=== PATIENT | female | born 1960 | race Caucasian/White ===

== ENCOUNTER 2017-10-16 06:07 | Inpatient (IN) | payer OTHER ==
--- NOTE | 2017-09-26 09:56 | PAT Medication Instructions ---
Service Date Sep 26, 2017. 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 Instructions For Your Scheduled Surgery - Hold the following medications the morning of surgery: Lisinopril (Prinivil), 20 MG PO QAM Methocarbamol (Robaxin), 500 MG PO TID PRN for RN - Take the following medications the morning of surgery with a sip of water: Duloxetine Hcl (Cymbalta), 60 MG PO QAM Hydrocodone/Acetaminophen 10MG/325MG ([place] 10MG/325MG), 1 TAB PO Q4H PRN for Pain (if needed, can be taken up to four hours before surgery) Levothyroxine Sodium (Levothyroxine Sodium), 1 TAB PO QAM Lorazepam (Ativan), 0.5 MG PO PRN (if needed) - Take the following medications as scheduled the night before surgery: Hydrocodone/Acetaminophen 10MG/325MG ([place] 10MG/325MG), 1 TAB PO Q4H PRN for Pain (if needed) Lorazepam (Ativan), 0.5 MG PO PRN (if needed) Methocarbamol (Robaxin), 500 MG PO TID PRN for RN (if needed) If you have any questions please call us at [phone] or [phone] or [phone]
--- NOTE | 2017-09-26 10:54 | DIAGNOSTIC IMAGING REPORT ---
CHEST 2 VIEWS ROUTINE HISTORY: 57 years-old Female PAT preoperative exam. No acute chest complaints COMPARISON: None available TECHNIQUE: PA and lateral views of the chest FINDINGS: Cardiomediastinal and hilar silhouettes are within normal limits. There is no pneumothorax, pleural effusion, focal airspace consolidation or overt pulmonary edema. There are multiple linear subsegmental lingular and right basilar opacities are noted suggesting areas of atelectasis/scarring. The bones of the chest appear grossly intact. Multilevel degenerative changes of the spine. Dextroscoliosis of the lumbar spine. IMPRESSION: No acute process. The above report was generated using voice recognition software. It may contain grammatical, syntax or spelling errors. Electronically signed by: Jose Kelly M.D. 09/26/2017 10:53 AM Dictated Date/Time: 09/26/2017 10:52 AM
[2017-09-26 12:17] LABS: BASO % 0.3 %; BASO ABS # 0.03 K/uL (0-0.2); EOS % 1.2 %; EOS ABS # 0.12 K/uL (0-0.5); HEMATOCRIT 44.9 % (37-47); IG# 0.02 K/uL (0.00-0.02); LYMPH % 28.9 %; LYMPH ABS # 3.01 K/uL (1.2-3.4); MEAN CELL VOLUME 97.2 fL (80-100); MEAN CORPUSCULAR HEMOGLOBIN 32.5 pg (25-34); MEAN CORPUSCULAR HGB CONC 33.4 g/dl (32-36); MEAN PLATELET VOLUME 10.3 fL (7.4-10.4); MONO % 6.4 %; MONO ABS # 0.67 K/uL (0.11-0.59); NEUT ABS # 6.57 K/uL (1.4-6.5); PLATELET COUNT 274 K/uL (130-400); RED CELL DISTRIBUTION WIDTH CV 12.8 % (11.5-14.5); RED CELL DISTRIBUTION WIDTH SD 44.7 fL (36.4-46.3); WHITE BLOOD COUNT 10.42 K/uL (4.8-10.8)
[2017-10-16] VITALS (18 sets, daily range): BP systolic 115–168; BP diastolic 73–91; PULSE 74–94; TEMP 36.5–37; O2SAT 95–100; Ht 162.6 cm; Wt 80.1 kg
[~2017-10-16] VITALS: Ht 162.6 cm; Wt 80.1 kg
[~2017-10-16 06:07] MED LIST: CLINDAMYCIN 600 MG/54 ML D5W IV SCH; DULO60CA44 PO; HYDR-4079 PO; LACTATED RINGER'S 1000ML 1,000 ML IV SCH; LEVO75TA5 PO; LISI20TA3 PO; LORA-741 PO; METH500T37 PO
[2017-10-16] MEDS ORDERED: ONDANSETRON INJ 2 MG/ML 2 ML VIAL IV PRN ×2 (06:30→09:30)
[2017-10-16] MEDS ORDERED: ATROPINE SULFATE 0.1 MG/ML 5ML SYR IV PRN (06:30)
[2017-10-16] MEDS ORDERED: EpHEDrine SULFATE INJ 50 MG/ML AMP IV PRN (06:30)
[2017-10-16] MEDS ORDERED: MIDAZOLAM HCL 1 MG/ML 2ML VIAL ONE (06:52)
[2017-10-16] MEDS ORDERED: FENTANYL CITRATE INJ 50 MCG/1 ML 2 ML VIAL ONE ×3 (06:52→08:32)
[2017-10-16] MEDS ORDERED: SODIUM CHLORIDE 0.9% PF 50 ML VIAL ONE (06:59)
[2017-10-16] MEDS ORDERED: BACITRACIN 50000 UNIT VIAL ONE (06:59)
--- NOTE | 2017-10-16 08:00 | History & Physical Bridge Note ---
H&P Re-Evaluation Bridge Note: I have examined the patient, reviewed the History & Physical and in the interval since the performance of the History & Physical I have noted the following changes of clinical significance: No changes noted
--- NOTE | 2017-10-16 08:01 | History and Physical ---
History & Physical Date Oct 16, 2017. Chief Complaint Neck and arm pain History of Present Illness The patient is a 57 year old female with complaints of neck and arm pain Additional History Hepatic Disease: No Endocrine Disorder: No Kidney Disease: No Hypertension: Yes Heart Disease: No Bleeding Tendencies: No Infectious Diseases: No Allergies Coded Allergies: Penicillins (Verified Allergy, Unknown, THROAT TONGUE SWELLS HIVES, ) Home Medications Scheduled Duloxetine Hcl (Cymbalta), 60 MG PO QAM Levothyroxine Sodium (Levothyroxine Sodium), 1 TAB PO QAM Lisinopril (Prinivil), 20 MG PO QAM Scheduled PRN Hydrocodone/Acetaminophen 10MG/325MG ([place] 10MG/325MG), 1 TAB PO Q4H PRN for Pain Methocarbamol (Robaxin), 500 MG PO TID PRN for RN Physical Examination Skin: warm/dry, no rash Eyes: normal inspection, EOMI, sclerae normal ENT: normal ENT inspection, pharynx normal Head: normocephalic, atraumatic Neck: supple, no adenopathy, trachea midline Respiratory/Chest: lungs clear, normal breath sounds, no respiratory distress Cardiovascular: regular rate, rhythm, no edema, no murmur Abdomen / GI: normal bowel sounds, non tender Back: normal inspection Extremities: normal inspection, normal range of motion Neurologic/Psych: no motor/sensory deficits, alert, normal reflexes, oriented x 3 Diagnosis Cervical spinal stenosis Plan of Treatment ACDF C5-6
[2017-10-16] MEDS ORDERED: HYDROmorphone INJ 2 MG/ML SYR/VIAL ONE ×2 (08:32→09:19)
[2017-10-16] MEDS ORDERED: FLOSEAL HEMOSTATIC MATRIX 10ML TOP ONE (09:13)
[2017-10-16] MEDS ORDERED: ONDANSETRON INJ 2 MG/ML 2 ML VIAL ONE ×2 (09:18→09:24)
[2017-10-16] MEDS ORDERED: ROCURONIUM BROMIDE 10 MG/ML 5 ML VIAL IV ONE (09:18)
[2017-10-16] MEDS ORDERED: LIDOCAINE HCL 2% 2 ML VIAL (20MG/ML) ONE (09:18)
[2017-10-16] MEDS ORDERED: PROPOFOL IV EMULSION 10 MG/ML 20 ML VIAL IV ONE (09:18)
[2017-10-16] MEDS ORDERED: DEXAMETHASONE SOD INJ 4 MG/ML VIAL ONE (09:18)
--- NOTE | 2017-10-16 09:19 | [facility] Operative Report ---
Operative Report Operative Date Oct 16, 2017. Pre-Operative Diagnosis Cervical spinal stenosis Post-Operative Diagnosis Cervical spinal stenosis Procedure(s) Performed 1. Anterior cervical discectomy bilateral foraminotomies C5-6. #2 anterior cervical arthrodesis C5-6. #3 placement of cortical allograft filled with DBM 7 mm in height at C5-6. #4 application of felt complete and screws across C5-6. Surgeon Dr. Prabhu Stevenson Jigger Artisan Surgeon(s) Kaylee Perez PA-C Estimated Blood Loss 10ml Findings Spinal stenosis Specimens None per surgeon Anesthesia Type General Description of Procedure Patient was met with preoperatively case discussed all questions addressed. After informed consent obtained patient was taken to the operative suite underwent intubation and placed in a supine position on the [place]undio table with head [place] head of marketing analytics. All bony prominences well-padded eyes inspected to ensure no external pressure placed upon them. This point the anterior cervical spine was prepped and draped in normal sterile fashion. The assistance of fluoroscopy identified the C5-6 disc space and a transverse incision was placed along the right anterior aspect of the cervical spine overlying this region. Sharp dissection with the assistance of bipolar electrocautery was performed to expose the anterior cervical spine at C5-6. Self retaining retractors placed. I then performed a complete discectomy at C5-6 up to the uncovertebral joints bilaterally. [place] distracting pins were utilized to assist us in her visualization. Remove all of the disc posterior fibers and longitudinal ligament and performed bilateral foraminotomies for complete decompression. The endplates were then burred to subcortical bleeding bone and a 7 mm cortical allograft with DBM tapped in position. Distraction apparatus was removed and a 5 complete and screws applied with the assistance of fluoroscopy. Incision was then copiously irrigated explored to ensure there is no damage to surrounding structures remaining bleeding. A 10 round GARRETT drain inserted. Incision was then closed with 2 Vicryl fascia 4-0 Monocryl for fashion closure Steri-Strips sterile dressings placed. Patient will continue to PACU stable condition. Please note Kaylee Perez was present throughout the entire procedure involved in patient positioning complex portions of the surgery and final skin closure. I attest to the content of the Intraoperative Record and any orders documented therein. Any exceptions are noted below.
[2017-10-16] MEDS ORDERED: PHENYLEPHRINE 100MCG/ML 5ML SYR ONE (09:24)
[2017-10-16] MEDS ORDERED: GLYCOPYRROLATE INJ 0.2 MG/ML VIAL ONE (09:24)
[2017-10-16] MEDS ORDERED: EpHEDrine SULFATE 50MG/5ML SYR ONE (09:24)
[2017-10-16] MEDS ORDERED: NEOSTIGMINE METHYLSULFATE 1 MG/ML 10ML VIAL ONE (09:24)
[2017-10-16] MEDS ORDERED: NALOXONE HCL 0.4 MG/1 ML VIAL/CARP IV PRN (09:30)
[2017-10-16] MEDS ORDERED: METHOCARBAMOL 500 MG TAB PO PRN (09:30)
[2017-10-16] MEDS ORDERED: ACETAMINOPHEN IV 100 ML IV PRN (09:30)
[2017-10-16] MEDS ORDERED: DO NOT ADMINISTER PNEUMOCOCCAL VACCINE PRN (09:30)
[2017-10-16] MEDS ORDERED: LORAZEPAM INJ 0.5 MG in SYRINGE 0.75 ML IV PRN (09:30)
[2017-10-16] MEDS ORDERED: DEXAMETHASONE INJ 8 MG in SYRINGE 0 ML IV PRN (09:30)
[2017-10-16] MEDS ORDERED: RACEPINEPHRINE 2.25% NEBU SOLN 0.5 ML VIAL INH PRN (09:30)
[2017-10-16] MEDS ORDERED: LORAZEPAM 0.5 MG TAB PO PRN (09:30)
[2017-10-16] MEDS ORDERED: DiphenhydrAMINE HCL 50 MG/ML VIAL IV PRN (09:30)
[2017-10-16] MEDS ORDERED: DO NOT ADMINISTER FLU VACCINE PRN (09:30)
[2017-10-16] MEDS ORDERED: MAGNESIUM HYDROXIDE SUSP 30 ML UDC PO PRN (09:30)
--- NOTE | 2017-10-16 09:42 | DIAGNOSTIC IMAGING REPORT ---
CERVICAL 2 OR 3 VIEWS CLINICAL HISTORY: 57 years-old Female presenting with ACDF C5-6. TECHNIQUE: 2 fluoroscopic spot image(s) obtained as part of an intraoperative procedure. COMPARISON: None. FINDINGS/IMPRESSION: Anterior cervical discectomy and fusion of C5-6 with interbody spacer. Straightening of normal cervical lordosis likely due to degenerative change. No prevertebral soft tissue swelling. Please see surgical report for further details. Fluoroscopy dosage (mGy): 0.57. Fluoroscopy time: 5.8 seconds. Number of fluoroscopic spot images: 2. Electronically signed by: Freddy Padron M.D. 10/16/2017 9:41 AM Dictated Date/Time: 10/16/2017 9:40 AM
[2017-10-16] MEDS ORDERED: NURSING VERBAL MED ORDER ONE (09:45)
[2017-10-16] MEDS: FENTANYL CITRATE INJ 50 MCG/1 ML 2 ML VIAL IV PRN ×4 (10:08→10:26)
[2017-10-16] MEDS ORDERED: ALBUT/IPRATROP 3MG/0.5MG NEB 3 ML VIAL INH ONE (10:15)
[2017-10-16] MEDS: HYDROmorphone INJ 1 MG/ML SYR IV PRN ×4 (10:31→10:46)
--- NOTE | 2017-10-16 12:00 | Anesthesiology Progress Note ---
Anesthesia Post Op Note Date & Time Oct 16, 2017 at 12:00 Vital Signs Pain Intensity: 8.0 Vital Signs Past 12 Hours Date Time Temp Pulse Resp B/P (MAP) Pulse Ox O2 Delivery O2 Flow Rate FiO2 10/16/17 11:46 84 14 95 Nasal Cannula 4.0 10/16/17 11:45 36.6 74 16 120/79 96 Nasal Cannula 4.0 10/16/17 11:03 97 16 10/16/17 11:03 95 16 95 10/16/17 11:01 133/71 10/16/17 10:58 84 16 97 10/16/17 10:58 86 16 10/16/17 10:56 135/68 10/16/17 10:54 36.5 10/16/17 10:53 96 13 97 10/16/17 10:53 97 13 10/16/17 10:52 102/66 10/16/17 10:48 99 21 10/16/17 10:48 100 21 96 10/16/17 10:47 85 12 95 10/16/17 10:47 86 12 10/16/17 10:46 136/71 10/16/17 10:42 102 20 97 10/16/17 10:42 103 20 10/16/17 10:41 139/95 10/16/17 10:37 81 13 10/16/17 10:37 81 13 95 10/16/17 10:36 137/80 10/16/17 10:32 81 13 95 10/16/17 10:32 82 13 10/16/17 10:31 134/76 10/16/17 10:28 81 16 96 10/16/17 10:28 81 16 10/16/17 10:26 125/84 18 10:23 77 13 95 18 10:23 78 13 18 10:22 77 12 10/16/17 10:22 76 12 94 10/16/17 10:21 143/87 10/16/17 10:17 84 16 95 18 10:17 85 16 18 10:16 161/94 10/16/17 10:12 80 13 96 10/16/17 10:12 80 13 10/16/17 10:11 90 16 10/16/17 10:11 90 16 148/86 94 10/16/17 10:06 82 14 10/16/17 10:06 83 14 158/89 97 10/16/17 10:01 81 16 153/85 97 10/16/17 10:01 81 16 10/16/17 10:00 86 15 10/16/17 10:00 85 15 98 10/16/17 09:56 156/91 10/16/17 09:55 90 14 10/16/17 09:55 89 14 99 10/16/17 09:51 165/89 10/16/17 09:50 91 12 97 10/16/17 09:50 91 12 10/16/17 09:46 153/101 10/16/17 09:45 95 16 10/16/17 09:45 95 16 98 10/16/17 09:42 150/99 10/16/17 09:40 99 84 10/16/17 09:40 36.7 99 16 150/99 96 Oxymask 15 10/16/17 09:40 99 10/16/17 06:41 36.5 82 20 168/91 99 Room Air Notes Mental Status: alert / awake / arousable, participated in evaluation Pt Amnestic to Procedure: Yes Nausea / Vomiting: adequately controlled Pain: adequately controlled Airway Patency, RR, SpO2: stable & adequate BP & HR: stable & adequate Hydration State: stable & adequate Anesthetic Complications: no major complications apparent
[2017-10-16] MEDS: SODIUM CHLORIDE 0.9% 1000ML 1,000 ML IV SCH (13:15)
[2017-10-16] MEDS: HYDROmorphone INJ 0.5 MG/0.5 ML SYR IV PRN ×2 (13:22→20:33)
[2017-10-16] MEDS ORDERED: RXC5 PO (13:31)
--- NOTE | 2017-10-16 13:32 | Discharge Instructions ---
Discharge Instructions Date of Service Oct 16, 2017. Admission Reason for Admission: Cervical Spinal Stenosis Discharge Discharge Diagnosis / Problem: cervical stenosis Discharge Goals Goal(s): Decrease discomfort Activity Recommendations Activity Limitations: per Instructions/Follow-up section . Instructions / Follow-Up Instructions / Follow-Up ACTIVITY RECOMMENDATIONS: SELF CARE INSTRUCTIONS AFTER CERVICAL FUSIONS 1. No smoking. Smoking drastically decreases the chance of a solid fusion. 2. No bending, lifting more than 5 pounds, or twisting (roll like a log when turning in bed). 3. You may shower 3 days after surgery. Thoroughly dry wound. Do not soak in the tub. 4. Cervical collar: Must be worn at all times including sleeping. You may remove the brace only to bath, eat and if you are sitting in a recliner. 5. Please walk as much as you can for exercise. Gradually increase the distance that you walk as your endurance increases. SPECIAL CARE INSTRUCTIONS: VERY IMPORTANT TO READ AND REVIEW A. Do not take any anti-inflammatory medications (i.e. Indocin, Advil, Aspirin, Naprosyn, Aleve, Motrin, etc.) as these may inhibit the chance of a solid fusion. Tylenol is okay to take. B. Your surgical incision has been closed with a cosmetic suture under the skin that will dissolve in about 6 weeks. In 14 days, you can use a pair of clean scissors and cut the suture that is left outside of the skin at the ends of your incision. C. Complications are uncommon, but please contact us if you have any signs or symptoms of: 1. wound infection (fever higher than 102.5 degrees F, redness, separation of wound, drainage, or increasing pain from the incision) 2. blood clots in legs (pain, swelling, redness and warmth in legs) 3. urinary tract infection (fever higher than 102.5 degrees, burning upon urination or increased frequency of urination) 4. nerve problems (inability to walk on your toes or heels, numbness, loss of bowel or bladder control) 5. any other symptoms that concern you. D. Please call the office at if you have any concerns or questions about your operation or recovery. MANAGING PAIN AFTER SPINAL SURGERY 1. Narcotic medication is intended for short-term use and will be provided for surgical pain. Surgical pain usually lasts for a period of 4-6 weeks. Narcotic medication includes Percocet, Vicodin, Darvocet, Tylenol #3 or Lortab. 2. Longer-term pain is more appropriately treated with non-narcotic medication such as Tylenol ES. 3. Muscle spasm is not appropriately treated with narcotics. Muscle relaxers such as Soma, Flexeril or Skelaxin can be used along with Tylenol ES. 4. Remember that we all live with some "aches and pains". This is not unusual or uncommon after an injury or as we get older. 5. We will provide appropriate medication within the normal guidelines of their prescribed use. We will also be very cautious and aware of potential abuse and extended duration of patients' medication needs. 6. Please allow 2-3 days to process refills. Prescriptions will not be mailed but must be picked up at the office. FOLLOW UP VISIT: Keep your scheduled follow-up appointment. Any questions, please call the office at . Current Hospital Diet Patient's current hospital diet: Clear Liquid Diet Discharge Diet Recommended Diet: Regular Diet Procedures Procedures Performed: 1. Anterior cervical discectomy bilateral foraminotomies C5-6. #2 anterior cervical arthrodesis C5-6. #3 placement of cortical allograft filled with DBM 7 mm in height at C5-6. #4 application of felt complete and screws across C5-6. Pending Studies Studies pending at discharge: no Medical Emergencies . Who to Call and When: Medical Emergencies: If at any time you feel your situation is an emergency, please call 911 immediately. . Non-Emergent Contact Non-Emergency issues call your: Primary Care Provider . "Provider Documentation" section prepared by Prabhu Stevenson. .
[2017-10-16] MEDS ORDERED: SCOPOLAMINE 1.5 MG TDSY TD SCH (14:00)
[2017-10-16] MEDS ORDERED: ESMOLOL HCL 10 MG/ML 10 ML VIAL ONE (14:12)
[2017-10-16] MEDS: CHECK SCOPOLAMINE PATCH PLACEMENT SCH (16:24)
[2017-10-16] MEDS: CLINDAMYCIN IV 600 MG in DEXTROSE 5% 50ML 50 ML IV SCH (16:25)
[2017-10-16] MEDS: OXYCODONE HCL IR 5 MG TAB (IMMEDIATE RELEASE) PO PRN (18:04)
[2017-10-16] MEDS: DOCUSATE SODIUM 100 MG CAP PO SCH (20:22)
[2017-10-17] VITALS (18 sets, daily range): BP systolic 116–153; BP diastolic 80–96; PULSE 69–86; TEMP 36.4–36.9; O2SAT 2–97
[2017-10-17] MEDS: CHECK SCOPOLAMINE PATCH PLACEMENT SCH ×2 (00:15→08:21)
[2017-10-17] MEDS: CLINDAMYCIN IV 600 MG in DEXTROSE 5% 50ML 50 ML IV SCH ×2 (00:18→08:20)
[2017-10-17] MEDS: SODIUM CHLORIDE 0.9% 1000ML 1,000 ML IV SCH ×2 (00:18→10:10)
[2017-10-17] MEDS ORDERED: LEVOTHYROXINE 75 MCG TAB PO SCH (06:00)
[2017-10-17] MEDS: OXYCODONE HCL IR 5 MG TAB (IMMEDIATE RELEASE) PO PRN ×2 (08:20→13:04)
[2017-10-17] MEDS ORDERED: LISINOPRIL 20 MG TAB PO SCH (09:00)
[2017-10-17] MEDS ORDERED: DULOXETINE HCL 60 MG CAP PO SCH (09:00)
[2017-10-17] MEDS: DOCUSATE SODIUM 100 MG CAP PO SCH (09:28)
--- NOTE | 2017-10-17 10:49 | Anesthesiology Progress Note ---
Anesthesia Post Op Note Date & Time Oct 17, 2017 at 10:49 Vital Signs Pain Intensity: 6.0 Vital Signs Past 12 Hours Date Time Temp Pulse Resp B/P (MAP) Pulse Ox O2 Delivery O2 Flow Rate FiO2 10/17/17 10:18 36.9 78 16 153/96 (84) 92 Room Air 10/17/17 10:00 36.9 78 16 153/96 (115) 92 Room Air 10/17/17 08:15 2 Nasal Cannula Humidified Oxygen 10/17/17 08:15 36.8 69 14 130/80 (84) 97 Room Air 2.0 10/17/17 07:45 72 14 97 Room Air 10/17/17 07:15 36.8 76 15 130/80 (97) 97 Nasal Cannula 2.0 10/17/17 06:27 36.4 69 14 132/87 (102) 97 Nasal Cannula 2.0 69 Humidified Oxygen 10/17/17 06:26 36.4 69 14 132/87 (102) 97 Nasal Cannula 2.0 69 Humidified Oxygen 10/17/17 06:22 36.4 69 14 132/87 97 Nasal Cannula 2.0 Humidified Oxygen 10/17/17 04:25 36.9 76 16 130/81 (97) 97 Nasal Cannula 2.0 76 10/17/17 04:21 36.9 76 14 130/81 97 Nasal Cannula 2.0 10/17/17 04:02 85 16 97 Nasal Cannula 2.0 10/17/17 02:31 36.5 76 16 122/80 (94) 97 Nasal Cannula 2.0 86 10/17/17 02:28 36.5 76 16 122/80 (84) 97 Nasal Cannula 2.0 10/17/17 00:21 82 16 96 Nasal Cannula 2.0 10/17/17 00:21 36.5 86 14 116/83 (94) 97 Nasal Cannula 2.0 10/17/17 00:20 97 Nasal Cannula 2.0 10/17/17 00:19 36.5 86 14 116/83 97 Nasal Cannula 2.0 10/16/17 23:20 36.5 92 16 116/83 (94) 96 Room Air Notes Mental Status: alert / awake / arousable, participated in evaluation Pt Amnestic to Procedure: Yes Nausea / Vomiting: adequately controlled Pain: adequately controlled, improving with treatment Airway Patency, RR, SpO2: stable & adequate BP & HR: stable & adequate Hydration State: stable & adequate Anesthetic Complications: no major complications apparent
--- NOTE | 2017-10-17 13:00 | Discharge Summary ---
Orthopedic Discharge Summary Admission Date/Reason Oct 16, 2017 at 07:30 Cervical Spinal Stenosis. Discharge Date/Disposition Oct 17, 2017 Home Diagnosis Principal Diagnosis: Cervical spinal stenosis Admission Physical Exam As per Admitting History & Physical. Hospital Course Patient underwent anterior cervical discectomy and fusion tolerated this well and was taken to orthopedic floor postoperatively postop day 1 her arm symptoms are improved she is swallowing without difficulty neck pain controlled subsequently she was discharged home. Discharge orders and instructions from the chart for further review. Discharge Instructions Please refer to the electronic Patient Visit Report (Discharge Instructions) for additional information.
[2017-10-18] MEDS ORDERED: BISACODYL 10 MG SUPP PR PRN (06:00)
[2017-10-18] MEDS ORDERED: BISACODYL 5 MG TABEC PO PRN (06:00)
[2017-10-18] MEDS ORDERED: POLYETHYLENE (MIRALAX) 17 GM PACK PO SCH (09:00)
== END 2017-10-17 13:31 | disposition home or self-care (01) | DRG 473 ==
LOC: C.ACU 06:07 → C.3E 07:30 → ENRESERV 10:30
PROVIDERS: ADMIT Orthopaedic Surgery Orthopaedic Surgery of the Spine; ATTEND Orthopaedic Surgery Orthopaedic Surgery of the Spine
PROC: 0RG10K0 Fusion of Cervical Vertebral Joint with Nonautologous Tissue Substitute, Anterior Approach, Anterior Column, Open Approach (ICD-10-PCS; principal; 2017-10-16 07:45)
PROC: 0RT30ZZ Resection of Cervical Vertebral Disc, Open Approach (ICD-10-PCS; principal; 2017-10-16 07:45)
DX: M48.02 Spinal stenosis, cervical region (principal); I10 Essential (primary) hypertension; Z88.0 Allergy status to penicillin